=== PATIENT | female | born 1960 | race Caucasian/White ===

== ENCOUNTER 2017-12-07 14:44 | Emergency (ER) | payer MEDICAID, OTHER ==
[2017-12-07 16:02] LABS: URINE BLOOD (Dip) POC Trace-intact (NEGATIVE); URINE GLUCOSE (Dip) POC Negative (NEGATIVE); URINE KETONES (Dip) POC Negative (NEGATIVE); URINE LEUKOCYTE EST (Dip) POC Negative (NEGATIVE); URINE NITRITE (Dip) POC Negative (NEGATIVE); URINE TOTAL PROTEIN POC Negative (NEGATIVE)
[2017-12-07 16:02] LABS: URINE PH (Dip) POC 6.5 (5.0-8.5)
== END 2017-12-07 16:42 | disposition home or self-care (01) ==
LOC: FTE 14:44
DX: L02.211 Cutaneous abscess of abdominal wall (principal); L03.311 Cellulitis of abdominal wall; I10 Essential (primary) hypertension
CPT/HCPCS: 10060; 81003; 99284-25